=== PATIENT | female | born 1960 | race Caucasian/White ===

== ENCOUNTER 2018-02-16 15:12 | Emergency (ER) | payer BC ==
[~2018-02-16] VITALS: Ht 175.3 cm; Wt 69.7 kg
[~2018-02-16 15:12] MED LIST: AMBIEN10 MG PO; CLONAZEPAM1 MG PO; DESYREL100 MG PO; DICYCLOMINE HCL10 MG PO; ESTRADIOL1 MG PO; HYDROMORPHONE HC2 MG PO; PROMETHAZINE HC25 M1 PO; SYNTHROID100 MCG PO; TIZANIDINE HCL4 MG PO
[2018-02-16 17:00] LABS: AMPHETAMINE NEGATIVE (500 ng/mL); BARBITURATES NEGATIVE (200 ng/mL); BENZODIAZEPINES NEGATIVE (150 ng/mL); BUPRENORPHINE NEGATIVE (10 ng/mL); COCAINE NEGATIVE (150 ng/mL); METHADONE NEGATIVE (200 ng/mL); METHAMPHETAMINE NEGATIVE (500 ng/mL); OPIATES (MORPHINE) NEGATIVE (100 ng/mL); OXYCODONE NEGATIVE (100 ng/mL); PHENCYCLIDINE NEGATIVE (25 ng/mL); PROPOXYPHENE NEGATIVE (300 ng/mL); THC CANNABINOIDS NEGATIVE (50 ng/mL); TRICYCLIC ANTIDEPRESSANTS NEGATIVE (300 ng/mL)
[2018-02-16 17:05] LABS: HEMATOCRIT 37.1 % (36.0-46.0); MCH 30.7 PG (29.0-34.0); MCV 87.5 FL (83-99); PLATELET COUNT 202 K/uL (156-360); RBC DIS.WIDTH-CV 12.9 % (11.8-14.6); RBC DIS.WIDTH-SD 40.4 % (39-53); RED BLOOD COUNT 4.24 M/uL (3.80-5.20); WHITE BLOOD COUNT 4.1 K/uL (4.1-10.2)
[2018-02-16 17:17] LABS: CHLORIDE 112 mEq/L (99-109); POTASSIUM 3.8 mEq/L (3.7-5.4); SODIUM 142 mEq/L (136-147)
[2018-02-16 17:19] LABS: GLUCOSE 91 mg/dL (70-99)
[2018-02-16 17:22] LABS: SERUM ETHYL ALCOHOL < 10 mg/dL
[2018-02-16 17:23] LABS: CREATININE 0.8 mg/dL (0.6-1.3); GFR ESTIMATE (CALCULATED) > 59 mL/min/
[2018-02-16 17:24] LABS: UREA NITROGEN (BUN) 12 mg/dL (9-23)
[2018-02-16 20:27] VITALS: BP 125/59
== END 2018-02-16 20:27 | disposition home or self-care (01) ==
LOC: EME 15:12
PROVIDERS: Family Medicine
DX: F22 Delusional disorders (principal); S90.32XA Contusion of left foot, initial encounter; Y09 Assault by unspecified means; Z04.6 Encounter for general psychiatric examination, requested by authority; E84.9 Cystic fibrosis, unspecified; F32.9 Major depressive disorder, single episode, unspecified; F43.10 Post-traumatic stress disorder, unspecified; F41.9 Anxiety disorder, unspecified; Z79.891 Long term (current) use of opiate analgesic; Z90.49 Acquired absence of other specified parts of digestive tract; Z90.710 Acquired absence of both cervix and uterus; Z88.5 Allergy status to narcotic agent; Z88.1 Allergy status to other antibiotic agents; Z88.8 Allergy status to other drugs, medicaments and biological substances
CPT/HCPCS: 80048; 85027; 90837; 99281; 99284; G0480